=== PATIENT | female | born 1995 | race Caucasian/White ===

== ENCOUNTER 2018-01-02 09:08 | Inpatient (IN) | payer OTHER ==
[2018-01-02 10:47] LABS: ADD UMIC YES; UR ASCORBIC ACID NEGATIVE (NEGATIVE); UR BACTERIA FEW /HPF (NONE SEEN); UR BILIRUBIN (Dip) NEGATIVE (NEGATIVE); UR BLOOD (Dip) 1+ mg/dL (NEGATIVE); UR CLARITY CLOUDY (CLEAR); UR COLOR YELLOW (YELLOW); UR GLUCOSE (Dip) NEGATIVE (NEGATIVE); UR KETONES (Dip) NEGATIVE (NEGATIVE); UR LEUKOCYTE ESTERASE (Dip) 3+ Leu/ul (NEGATIVE); UR NITRITE (Dip) NEGATIVE (NEGATIVE); UR RBC 4 /HPF (0-5); UR SPECIFIC GRAVITY (Dip) 1.009 (1.003-1.030); UR SQUAMOUS EPITHELIAL CELL MANY /HPF (FEW); UR TOTAL PROTEIN (Dip) NEGATIVE (NEGATIVE); UR UROBILINOGEN (Dip) NEGATIVE (NEGATIVE); UR WBC 23 /HPF (0-5)
[2018-01-02 10:56] LABS: ADD MAN DIFF? NO
[2018-01-02 10:58] LABS: BASOPHILS % 0.3 % (0.0-2.0); EOSINOPHILS # 0.1 10^3/ul (0.0-0.5); EOSINOPHILS % 0.8 % (0.0-7.0); HEMATOCRIT 32.7 % (37.0-47.0); HEMOGLOBIN 10.9 g/dl (12.0-16.0); LYMPHOCYTES # 2.6 10^3/ul (0.8-2.9); LYMPHOCYTES % 26.3 % (18.0-55.0); MEAN CORPUSCULAR HEMOGLOBIN 31.5 pg (29.0-33.0); MEAN CORPUSCULAR HGB CONC 33.3 g/dl (32.0-37.0); MEAN CORPUSCULAR VOLUME 94.5 fl (72.0-104.0); MEAN PLATELET VOLUME 10.8 fl (7.4-10.4); MONOCYTE # 0.5 10^3/ul (0.3-0.9); MONOCYTES % 5.4 % (0.0-13.0); NEUTROPHIL # 6.6 10^3/ul (1.6-7.5); NEUTROPHILS % 66.3 % (30.0-74.0); PLATELET COUNT 242 10^3/UL (140-415); RED BLOOD COUNT 3.46 10^6/ul (4.20-5.40); RED CELL DISTRIBUTION WIDTH 12.2 % (11.5-14.5)
[2018-01-02] MEDS: LACTATED RINGER'S 1,000 ML IV ×2 (16:29→23:59)
[2018-01-02] MEDS ORDERED: CEFAZOLIN 2 GM/50 ML (PMX) 50 ML IVPB (16:33)
[2018-01-02] MEDS: CEFAZOLIN 2 GM/50 ML (PMX) 50 ML IVPB ×2 (16:35→22:00)
[2018-01-02] MEDS: BETAMET NA PHOS/AC(6 MG/ML) 5ML INJ IM (16:36)
[2018-01-02] MEDS ORDERED: MAGNESIUM SULFATE 4 GM/100 ML 100 ML (18:06)
[2018-01-02] MEDS: MAGNESIUM SULFATE 4 GM/100 ML 100 ML IV (18:17)
[2018-01-02] MEDS: MAGNESIUM SULFATE 20 GM/500 ML 500 ML IV (18:47)
[2018-01-03 01:09] LABS: MAGNESIUM 4.8 mg/dl (1.7-2.5)
[2018-01-03] MEDS: MAGNESIUM SULFATE 20 GM/500 ML 500 ML IV ×3 (04:59→11:47)
[2018-01-03] MEDS: CEFAZOLIN 2 GM/50 ML (PMX) 50 ML IVPB ×3 (05:56→22:07)
[2018-01-03 07:16] LABS: MAGNESIUM 5.2 mg/dl (1.7-2.5)
[2018-01-03 12:31] LABS: MAGNESIUM 4.9 mg/dl (1.7-2.5)
[2018-01-03] MEDS: LACTATED RINGER'S 1,000 ML IV (12:53)
[2018-01-03] MEDS: BETAMET NA PHOS/AC(6 MG/ML) 5ML INJ IM (16:36)
[2018-01-04] MEDS: CEFAZOLIN 2 GM/50 ML (PMX) 50 ML IVPB ×3 (05:46→22:35)
[2018-01-04] MEDS: LACTATED RINGER'S 1,000 ML IV (12:38)
== END 2018-01-04 23:23 | disposition home or self-care (01) | DRG 781 ==
LOC: OBT 09:08 → L-D 09:09 → OBT 11:40 → L-D 15:50
DX: O23.43 Unspecified infection of urinary tract in pregnancy, third trimester (principal); O47.1 False labor at or after 37 completed weeks of gestation; Z3A.30 30 weeks gestation of pregnancy
CPT/HCPCS: 74181; 76817; 76818; 81001; 82731; 83735; 85025; 87086

== ENCOUNTER 2018-03-06 05:47 | Inpatient (IN) | payer OTHER ==
[2018-03-06] MEDS ORDERED: CARBOPROST 250 MCG INJ IM ×2 (06:30→12:00)
[2018-03-06] MEDS ORDERED: MISOPROSTOL 200 MCG TAB PR ×2 (06:30→12:00)
[2018-03-06] MEDS ORDERED: IBUPROFEN 600 MG TAB PO (06:30)
[2018-03-06] MEDS ORDERED: OXYTOCIN 30 UNITS/LR 500 ML IV ×3 (06:30→12:00)
[2018-03-06 06:43] LABS: ADD MAN DIFF? NO
[2018-03-06 07:10] LABS: INR 0.93; PARTIAL THROMBOPLASTIN TIME 29.7 Sec (23.0-35.0); PROTIME 12.5 Sec (11.9-14.9)
[2018-03-06] MEDS: LACTATED RINGER'S 1,000 ML IV* ×4 (07:17→09:22)
[2018-03-06] MEDS ORDERED: BUTORPHANOL 2 MG INJ IV (07:30)
[2018-03-06] MEDS ORDERED: FENTAnyl 2MCG/ML-ROPIV 0.2% 100 ML (07:55)
[2018-03-06 08:00] LABS: HEPATITIS B SURFACE ANTIGEN NEGATIVE (NEGATIVE)
[2018-03-06] MEDS: PENICILLIN G BENZ 2.4 MIL UNIT SYG IM (08:02)
[2018-03-06] MEDS ORDERED: NALOXONE (0.4 MG/ML) INJ IV (08:30)
[2018-03-06] MEDS ORDERED: FENTAnyl 2MCG/ML-ROPIV 0.2% 100 ML BAG EPI ×2 (08:30)
[2018-03-06 08:52] LABS: BASOPHILS % 0.2 % (0.0-2.0); EOSINOPHILS # 0.1 10^3/ul (0.0-0.5); HEMATOCRIT 31.7 % (37.0-47.0); HEMOGLOBIN 10.2 g/dl (12.0-16.0); LYMPHOCYTES # 3.8 10^3/ul (0.8-2.9); LYMPHOCYTES % 29.1 % (18.0-55.0); MEAN CORPUSCULAR HEMOGLOBIN 29.1 pg (29.0-33.0); MEAN CORPUSCULAR HGB CONC 32.2 g/dl (32.0-37.0); MEAN CORPUSCULAR VOLUME 90.6 fl (72.0-104.0); MEAN PLATELET VOLUME 11.4 fl (7.4-10.4); MONOCYTE # 0.7 10^3/ul (0.3-0.9); MONOCYTES % 5.1 % (0.0-13.0); NEUTROPHIL # 8.3 10^3/ul (1.6-7.5); NEUTROPHILS % 64.2 % (30.0-74.0); PLATELET COUNT 257 10^3/UL (140-415); RED CELL DISTRIBUTION WIDTH 13.4 % (11.5-14.5)
[2018-03-06 08:52] LABS: WHITE BLOOD COUNT 12.9 10^3/ul (4.8-10.8)
[2018-03-06 08:58] LABS: AMPHETAMINE/METHAMPHETAMINE Negative (NEGATIVE); BARBITURATES Negative (NEGATIVE); BENZODIAZEPINES Negative (NEGATIVE); CANNABINOIDS Negative (NEGATIVE); COCAINE Negative (NEGATIVE); OPIATES Negative (NEGATIVE)
[2018-03-06] MEDS ORDERED: LIDOCAINE 0.5% (SDV) 50 ML INJ (08:59)
[2018-03-06] MEDS: OXYTOCIN 30 UNITS/LR 500 ML IV ×2 (09:22→12:27)
[2018-03-06] MEDS ORDERED: PHENYLephrine (100 MCG/ML) 5ML SYG (09:31)
[2018-03-06] MEDS: HETASTARCH 6% NACL 500 ML BAG IV* (09:35)
[2018-03-06] MEDS: MINERAL OIL LIGHT 10 ML VIAL TOP (11:56)
[2018-03-06] MEDS ORDERED: LACTATED RINGER'S 1,000 ML IV* (11:56)
[2018-03-06] MEDS ORDERED: DEXTROSE 5%-LR 1,000 ML IV (11:56)
[2018-03-06] MEDS: METHYLERGONOVINE 0.2 MG INJ IM (11:58)
[2018-03-06] MEDS ORDERED: HYDROCODONE/APAP (5/325) TAB PO (12:00)
[2018-03-06] MEDS ORDERED: ONDANSETRON 4 MG INJ IV (12:00)
[2018-03-06] MEDS ORDERED: DIBUCAINE 1% 30 GM OINT TOP (12:00)
[2018-03-06] MEDS ORDERED: ACETAMINOPHEN 325 MG TAB PO (12:00)
[2018-03-06] MEDS ORDERED: METHYLERGONOVINE 0.2 MG INJ IM (12:00)
[2018-03-06] MEDS ORDERED: WITCH HAZEL/GLYCERIN PAD PR (12:00)
[2018-03-06] MEDS ORDERED: ZOLPIDEM 5 MG TAB PO (12:00)
[2018-03-06] MEDS ORDERED: DIPHENHYDRAMINE 50 MG INJ IV (12:00)
[2018-03-06] MEDS: IBUPROFEN 600 MG TAB PO ×2 (15:20→17:53)
[2018-03-06] MEDS: BENZOCAINE 20% 56 ML SPRAY TOP (17:53)
[2018-03-06] MEDS: LANOLIN 7 GM TUBE TOP (17:54)
[2018-03-06] MEDS: SENNA/DOCUSATE NA (8.6MG/50MG) TAB PO (21:32)
[2018-03-06 22:58] LABS: RAPID PLASMA REAGIN REACTIVE (NR)
[2018-03-07] MEDS: IBUPROFEN 600 MG TAB PO ×4 (00:06→17:52)
[2018-03-07 07:53] LABS: ADD MAN DIFF? NO
[2018-03-07 07:59] LABS: WHITE BLOOD COUNT 12.7 10^3/ul (4.8-10.8)
[2018-03-07 07:59] LABS: BASOPHILS % 0.2 % (0.0-2.0); EOSINOPHILS # 0.1 10^3/ul (0.0-0.5); HEMATOCRIT 27.6 % (37.0-47.0); HEMOGLOBIN 8.7 g/dl (12.0-16.0); LYMPHOCYTES # 3.7 10^3/ul (0.8-2.9); LYMPHOCYTES % 29.2 % (18.0-55.0); MEAN CORPUSCULAR HEMOGLOBIN 28.8 pg (29.0-33.0); MEAN CORPUSCULAR HGB CONC 31.5 g/dl (32.0-37.0); MEAN CORPUSCULAR VOLUME 91.4 fl (72.0-104.0); MEAN PLATELET VOLUME 11.5 fl (7.4-10.4); MONOCYTE # 0.8 10^3/ul (0.3-0.9); MONOCYTES % 6.2 % (0.0-13.0); NEUTROPHILS % 63.1 % (30.0-74.0); PLATELET COUNT 222 10^3/UL (140-415); RED BLOOD COUNT 3.02 10^6/ul (4.20-5.40); RED CELL DISTRIBUTION WIDTH 13.5 % (11.5-14.5)
[2018-03-08] MEDS: IBUPROFEN 600 MG TAB PO ×3 (00:06→14:37)
[2018-03-08] MEDS ORDERED: MEASLES,MUMPS,RUBELLA VACCINE INJ SC* (09:00)
[2018-03-08] MEDS: DIPHTH/TET/ACEL PERTUSS (ADULT) 0.5 ML VIAL IM* (10:27)
[2018-03-08] MEDS ORDERED: MEDROXYPROGESTERONE 150 MG INJ SYG IM (10:30)
[2018-03-08] MEDS: MEDROXYPROGESTERONE 150 MG INJ SYG IM (11:30)
[2018-03-09 17:02] LABS: FLUORESCENT TREPONEMAL AB REACTIVE (NON-REACTIVE)
== END 2018-03-08 14:45 | disposition home or self-care (01) | DRG 807 ==
LOC: OBT 05:47 → L-D 05:47 → OBT 06:10 → L-D 06:10 → PP1 15:13
PROC: 10E0XZZ Delivery of Products of Conception, External Approach (ICD-10-PCS; principal; 2018-03-06)
PROC: 3E033VJ Introduction of Other Hormone into Peripheral Vein, Percutaneous Approach (ICD-10-PCS; 2018-03-06)
DX: O69.81X0 Labor and delivery complicated by cord around neck, without compression, not applicable or unspecified (principal); Z37.0 Single live birth; Z3A.39 39 weeks gestation of pregnancy
CPT/HCPCS: 62319; 76815; 80307; 85025; 85610; 85730; 86592; 86850; 86900; 86901; 87340; 88307; 90715; 99464

== ENCOUNTER 2018-04-06 21:58 | Emergency (ER) | payer SELFPAY, OTHER | END 2018-04-06 23:05 | disposition left against medical advice (07) | LOC: FTE 21:58 | DX: Z53.21 Procedure and treatment not carried out due to patient leaving prior to being seen by health care provider (principal) ==